=== PATIENT | female | born 1990 | race Two or more races ===

== ENCOUNTER 2018-06-07 10:38 | Emergency (ER) | payer MEDICAID ==
[~2018-06-07] VITALS: Ht 170.2 cm; Wt 86.2 kg
--- NOTE | 2018-06-07 11:00 | Emergency Room Report ---
History of Present Illness General Chief Complaint: Lower Extremity Injury Source: Patient Present Illness HPI Patient present with complaints of pain to the right large toe Reports that she hit a stair going up the stairs just prior to arrival Pain is localized to the large toe denies any ankle pain denies any knee pain Denies any other trauma There was also a small cut to the lateral aspect Pain is 3 out of 10 worse with touch better with rest Allergies: Coded Allergies: No Known Allergies (Unverified , 06/07/18) Patient History Past Medical History: see triage record Pertinent Family History: none Last Menstrual Period: 05/13/18 Now: No : 0 Reviewed Nursing Documentation: PMH: Agreed; PSxH: Agreed Nursing Documentation-PMH Past Medical History: No History, Except For Hx Asthma: Yes Hx Seizures: Yes - epilepsy Review of Systems All Other Systems: negative except mentioned in HPI Physical Exam Vital Signs Date Time Temp Pulse Resp B/P (MAP) Pulse Ox O2 Delivery O2 Flow Rate FiO2 06/07/18 10:44 98.2 74 18 110/71 99 Room Air Sp02 EP Interpretation: reviewed, normal General Appearance: well appearing, no apparent distress Head: normocephalic, atraumatic Eyes: bilateral eye PERRL, bilateral eye EOMI ENT: normal pharynx Neck: supple Respiratory: lungs clear Musculoskeletal: other - Mild swelling to the right large toe also small laceration on the medial aspect, Neurologic: alert, oriented x3, responsive Skin: other - As above Procedures Splinting Splinting : Consent: Verbal Location: Right foot Pre-Made Type: velcro Splint: poserior short Pre-Proc Neuro Vasc Exam: normal Post-Proc Neuro Vasc Exam: normal Patient Tolerated: Well Complications: None Medical Decision Making Diagnostic Impression: Primary Impression: Toe fracture, right ER Course Patient's x-ray reveals evidence of fracture Given the small break in the patient's skin antibiotics were also initiated Area cleansed and irrigated patient provided with referral to adaptive physical education specialist and orthopedic clinic Patient understands the importance of close follow-up given the open laceration aspect Other X-Ray Diagnostic Results Other X-Ray Diagnostic Results : X-Ray ordered: Right foot # of Views/Limited Vs Complete: 3 View Indication: Pain EP Interpretation: Yes Interpretation: no dislocation, no soft tissue swelling, other - Distal first phalangeal fracture Impression: Other - Distal first pharyngeal fracture Electronically Signed by: Praveen Cardona DO Last Vital Signs Date Time Temp Pulse Resp B/P (MAP) Pulse Ox O2 Delivery O2 Flow Rate FiO2 06/07/18 10:44 98.2 74 18 110/71 99 Room Air Status: improved Disposition: HOME, SELF-CARE Condition: Improved Scripts Ciprofloxacin Hcl* (CIPROFLOXACIN HCL*) 500 Mg Tablet 500 MG ORAL Q12H, #14 TAB 0 Refills Prov: Praveen Cardona DO 06/07/18 Ibuprofen* (MOTRIN*) 600 Mg Tablet 600 MG ORAL Q8H PRN for For Pain, #20 TAB 0 Refills Prov: Praveen Cardona DO 06/07/18 Additional Instructions: Patient is provided with the discharge instructions notified to follow up with primary doctor in the next 2-3 days otherwise return to the er with any worsening symptoms. Please note that this report is being documented using [employer] technology. This can lead to erroneous entry secondary to incorrect interpretation by the dictating instrument. Praveen Cardona DO Jun 07, 2018 11:00
[2018-06-07] MEDS ORDERED: IBUPROFEN600 MG ORAL (11:25)
[2018-06-07] MEDS ORDERED: CIPROFLOXACIN500 M2 ORAL (11:25)
--- NOTE | 2018-06-07 11:26 | Diagnostic Imaging Report ---
Indication: Trauma, pain Technique: 3 views right foot Comparison: none Findings: There is a transverse nondisplaced fracture of the first distal phalanx. No other acute fractures. No dislocations. There is mild metatarsus adductus. The joint spaces are preserved Impression: Positive for nondisplaced first distal phalangeal fracture. Findings discussed by phone with Dr. Cardona at the time of interpretation
[2018-06-07] MEDS ORDERED: Ciprofloxacin 500mg tab ORAL ONE (11:30)
[2018-06-07 11:36] VITALS: BP 116/76
== END 2018-06-07 11:38 | disposition home or self-care (01) ==
LOC: EMR 11:03
DX: S92.424A Nondisplaced fracture of distal phalanx of right great toe, initial encounter for closed fracture (principal); X58.XXXA Exposure to other specified factors, initial encounter; Y92.9 Unspecified place or not applicable; J45.909 Unspecified asthma, uncomplicated; G40.909 Epilepsy, unspecified, not intractable, without status epilepticus
CPT/HCPCS: 99283